=== PATIENT | male | born 1980 | race Caucasian/White ===

== ENCOUNTER 2019-05-17 14:22 | Emergency (ER) | payer OTHER ==
[~2019-05-17] VITALS: Ht 188 cm; Wt 122.5 kg
[2019-05-17 14:51] VITALS: BP 149/88
--- NOTE | 2019-05-17 15:07 | PHYS DOC ---
Past Medical History Past Medical History: No Pertinent History Past Surgical History: No Surgical History Alcohol Use: None Drug Use: None Adult General Chief Complaint Chief Complaint: LACERATION/AVULSION HPI HPI Patient is a 39 year old right-handed male who presents with complaining of laceration of forearm. Patient states he cut his left forearm with a piece of metal while he was at work. Patient denies other injuries and focal neuro deficit and pain. Patient is not up-to-date with tetanus immunization. Review of Systems Review of Systems Constitutional: Denies fever or chills [] Eyes: Denies change in visual acuity, redness, or eye pain [] HENT: Denies nasal congestion or sore throat [] Respiratory: Denies cough or shortness of breath [] Cardiovascular: No additional information not addressed in HPI [] GI: Denies abdominal pain, nausea, vomiting, bloody stools or diarrhea [] : Denies dysuria or hematuria [] Musculoskeletal: Denies back pain or joint pain [] Integument: Denies rash or skin lesions [] Neurologic: Denies headache, focal weakness or sensory changes [] Endocrine: Denies polyuria or polydipsia [] All other systems were reviewed and found to be within normal limits, except as documented in this note. Current Medications Current Medications Current Medications Medications (Trade) Dose Ordered Sig/Thierno Start Time Stop Time Status Last Admin Dose Admin Diphtheria/ Tetanus/Acell Pertussis (Boostrix) 0.5 ml ONCE ONCE 05/17/19 15:30 05/17/19 15:31 DC 05/17/19 15:23 0.5 ML Allergies Allergies Allergies Coded Allergies Type Severity Reaction Last Updated Verified No Known Drug Allergies 12/12/15 No Physical Exam Physical Exam Constitutional: Well developed, well nourished,no distress, non-toxic appearance. [] HENT: Normocephalic, atraumatic. Eyes: PERRLA, EOMI, conjunctiva normal, no discharge. [] Neck: Normal range of motion, no tenderness, supple, no stridor. [] Cardiovascular:Heart rate regular rhythm, no murmur [] Lungs & Thorax: Bilateral breath sounds clear to auscultation [] Extremities: 3 cm superficial laceration in the volar side of mid left forearm without active bleeding, no cyanosis, no clubbing, ROM intact, no edema. [] Neurologic: Alert and oriented X 3, no focal deficits noted. [] Psychologic: Affect normal, judgement normal, mood normal. [] Current Patient Data Vital Signs Vital Signs Date Time Temp Pulse Resp B/P (MAP) Pulse Ox O2 Delivery O2 Flow Rate FiO2 05/17/19 14:51 98.3 88 18 149/88 (108) 97 Room Air 98.3 EKG EKG [] Radiology/Procedures Radiology/Procedures [] Course & Med Decision Making Course & Med Decision Making Evaluation of patient in ER showed 39-year-old male patient with a superficial laceration of left forearm that was repaired with Dermabond and Steri-Strip. Dragon Disclaimer Dragon Disclaimer This electronic medical record was generated, in whole or in part, using a voice recognition dictation system. Departure Departure Impression: Primary Impression: Forearm laceration Disposition: HOME, SELF-CARE (at 1505) Condition: IMPROVED Referrals: MOISÉS HAMILTON (PCP) Patient Instructions: Tissue Adhesive Wound Care Additional Instructions: Keep wound clean and dry Follow-up with your primary care physician in 3-5 days Return to ER if not getting better Laceration Repair Lac Repair Indication: Left forearm laceration Procedure: The patient was placed in the appropriate position and 3 cm superfic ial laceration was repaired with Dermabond and Steri-Strip. Total repaired wound length: 3 cm Other Items: [OTHER ITEMS] The patient tolerated the procedure well. Complications: None. Problem Qualifiers Primary Impression: Forearm laceration Encounter type: initial encounter Laterality: left Qualified Codes: S51.812A - Laceration without foreign body of left forearm, initial encounter DAVID COLLINS MD May 17, 2019 15:07
[2019-05-17] MEDS ORDERED: DIPHTH,PERTUSS(ACELL),TET TOX 0.5 ML DISP.SYRIN. VAX IM ONE (15:30)
== END 2019-05-17 15:36 | disposition home or self-care (01) ==
LOC: ER 14:22
DX: S51.812A Laceration without foreign body of left forearm, initial encounter (principal); Y28.8XXA Contact with other sharp object, undetermined intent, initial encounter; Y93.89 Activity, other specified; Y92.69 Other specified industrial and construction area as the place of occurrence of the external cause; Y99.0 Civilian activity done for income or pay
CPT/HCPCS: 12002; 90471; 90715; 99283